=== PATIENT | female | born 1970 | race Caucasian/White ===

== ENCOUNTER 2020-12-23 10:47 | Outpatient (CLI) | payer OTHER, SELFPAY ==
--- NOTE | ~2020-12-23 | XR_ITS ---
EXAMINATION: XR chest 2V DATE: 12/23/2020 11:02 INDICATION: Chest pain. Recovering from COVID infection. TECHNIQUE: PA and lateral views of the chest were obtained. COMPARISON: None FINDINGS: The lungs are clear with no focal airspace opacities, pulmonary edema, pleural effusion or pneumothor ax. The cardiomediastinal silhouette is normal. Mild mid thoracic dextrocurvature. 2 cm subtle round density in the right upper quadrant. IMPRESSION: 1. No acute cardiopulmonary disease. 2. Subtle 2 cm round density in the right upper quadrant. Differential would include gallstone, dense colonic diverticulum or less likely renal stone. Reviewed, dictated and finalized at location A. IMPRESSION: 1. No acute cardiopulmonary disease. 2. Subtle 2 cm round density in the right upper quadrant. Differential would in clude gallstone, dense colonic diverticulum or less likely renal stone.
== END 2020-12-23 10:48 | disposition home or self-care (01) ==
PROVIDERS: PCP Family Medicine; Visit Provider Physician Assistant
DX: U07.1 COVID-19 (principal); R07.89 Other chest pain; R06.02 Shortness of breath
CPT/HCPCS: 71046

== ENCOUNTER → 2021-01-16 15:52 | Outpatient (CLI) | payer OTHER, SELFPAY ==
--- NOTE | ~2021-01-16 | US_ITS ---
US right upper quadrant INDICATION: Gallstones seen on x-ray PROCEDURE: Realtime right upper abdominal ultrasound. COMPARISON: Chest x-ray dated 12/23/2020 FINDINGS: The pancreas is normal without focal mass or pancreatic ductal dilation. Liver echotexture is normal without focal mass or intrahepatic biliary dilatation. There is normal directional flow i n the portal vein. There are gallstones with gallbladder wall thickening. There is gallbladder sludge. Common bile duct measures 7 mm. No sonographic Sears's sign. IMPRESSION: 1: Cholelithiasis with gallbladder wall thickening. Consider cholecystitis in the appropriate clinica l setting. Reviewed, dictated and finalized at location B. IMPRESSION: 1: Cholelithiasis with gallbladder wall thickening. Consider cholecystitis in t he appropriate clinical setting.
== END ==
PROVIDERS: PCP Family Medicine; Visit Provider Physician Assistant
DX: K80.20 Calculus of gallbladder without cholecystitis without obstruction (principal)
CPT/HCPCS: 76705